=== PATIENT | female | born 1945 | race African-American/Black ===

== ENCOUNTER 2018-09-20 18:02 | Inpatient (IN) | payer OTHER ==
[~2018-09-20] VITALS: Ht 167.6 cm; Wt 96.6 kg
[2018-09-20 21:11] LABS: BASOPHILS % 0.8 % (0.0-2.0); EOSINOPHILS % 1.7 % (0.0-5.0); HEMATOCRIT. 39.9 % (36.0-48.0); HEMOGLOBIN. 13.1 g/dL (12.0-16.0); LYMPHOCYTES % 29.6 % (20.0-50.0); MEAN CORPUSCULAR HEMOGLOBIN 30.4 pg (28.0-32.0); MEAN CORPUSCULAR VOLUME 92.8 fL (81.0-99.0); MEAN PLATELET VOLUME 10.5 fl (7.4-10.4); MONOCYTES % 10.5 % (2.0-8.0); NEUTROPHILS % 57.4 % (40.0-76.0); PLATELET 171 x1000/uL (130-400); RED CELL DISTRIBUTION WIDTH 14.3 % (11.6-14.6)
[2018-09-20 21:14] LABS: CHLORIDE 103 mEq/L (98-107)
[2018-09-20] MEDS ORDERED: ASPIRIN 81MG TABLET PO ONE (22:15)
[2018-09-20] MEDS ORDERED: FUROSEMIDE 40MG/4ML VIAL IV ONE (22:15)
[2018-09-21 02:00] VITALS: BP_SYST 146; BP_SYST 151; BP_DIAS 101
[2018-09-21] MEDS ORDERED: CARV12.545 PO (03:18)
[2018-09-21] MEDS ORDERED: ASPI-986 PO (03:18)
[2018-09-21] MEDS ORDERED: ACETAMINOPHEN 325MG TABLET PO PRN (05:00)
[2018-09-21 08:00] VITALS: BP 148/95
[2018-09-21] MEDS: ENOXAPARIN 30MG/0.3ML SYR SUBCUT SCH ×2 (09:10→20:58)
[2018-09-21] MEDS: FUROSEMIDE 40MG/4ML VIAL IVP SCH (09:10)
[2018-09-21] MEDS: CARVEDILOL 12.5MG TABLET PO SCH ×2 (09:11→20:57)
[2018-09-21] MEDS: LOSARTAN POTASSIUM 50 MG TABLET PO SCH (09:11)
[2018-09-21] MEDS: POTASSIUM CHLORIDE 20MEQ TABLET SR PO SCH (09:11)
[2018-09-21 10:56] LABS: HEMATOCRIT 40.2 % (36.0-48.0); HEMOGLOBIN 13.1 g/dL (12.0-16.0); MEAN CORPUSCULAR HEMOGLOBIN 30.2 pg (28.0-32.0); MEAN CORPUSCULAR VOLUME 92.8 fL (81.0-99.0); PLATELET 158 x1000/uL (130-400); RED BLOOD CELL COUNT 4.33 mill/uL (4.2-5.4); RED CELL DISTRIBUTION WIDTH 13.8 % (11.6-14.6)
[2018-09-21 11:06] LABS: CLARITY URINE CLEAR (CLEAR); COLOR URINE YELLOW (YELLOW); KETONES URINE NEGATIVE (NEGATIVE); LEUKOCYTE ESTERASE URINE TRACE (NEGATIVE); NITRITE URINE NEGATIVE (NEGATIVE); OCCULT BLOOD URINE NEGATIVE (NEGATIVE); PH URINE 5.5 (4.5-8.0); PROTEIN URINE 3+ (NEGATIVE); SPECIFIC GRAVITY URINE 1.017 (1.005-1.030); UROBILINOGEN URINE 0.2 E.U./dL (0.2-1.0)
[2018-09-21 11:19] LABS: CHLORIDE 102 mEq/L (98-107)
[2018-09-21 11:32] LABS: CREATINE KINASE 110 IU/L (26-192)
[2018-09-21 11:34] LABS: CREATINE KINASE MB FRACTION 3.8 ng/mL (0.5-3.6)
[2018-09-21 11:51] VITALS: BP 131/76
[2018-09-21 12:20] LABS: *AMPHETAMINES SCREEN URINE NEGATIVE (NEGATIVE); *BARBITURATES SCREEN URINE NEGATIVE (NEGATIVE); *BENZODIAZEPINES SCREEN URINE PRESUMTIVE POSITIVE (NEGATIVE); *COCAINE SCREEN URINE NEGATIVE (NEGATIVE)
[2018-09-21 12:21] LABS: CANNABINOID URINE SCREEN NEGATIVE (NEGATIVE); METHADONE URINE SCREEN NEGATIVE (NEGATIVE); OPIATES URINE SCREEN NEGATIVE (NEGATIVE); PHENCYCLIDINE URINE SCREEN NEGATIVE (NEGATIVE)
[2018-09-21] MEDS ORDERED: DOCUSATE SODIUM 100MG CAPSULE PO PRN (15:30)
[2018-09-21] MEDS ORDERED: HYDRALAZINE 20MG/ML VIAL IV PRN (15:30)
[2018-09-21] MEDS ORDERED: LORAZEPAM 0.5MG TABLET PO PRN (15:30)
[2018-09-21] MEDS ORDERED: DIPHENHYDRAMINE 50MG/ML VIAL IV PRN (15:30)
[2018-09-21] MEDS ORDERED: HYDROCODONE/ACETAMINOPHEN 5/325MG TABLET PO PRN (15:30)
[2018-09-21 16:00] VITALS: BP 131/87
[2018-09-21] MEDS: PANTOPRAZOLE SODIUM 40 MG/VIAL IV SCH (16:06)
[2018-09-21] MEDS: ASPIRIN 81MG TABLET PO SCH (16:06)
[2018-09-21] MEDS ORDERED: CEFTRIAXONE 1 G PREMIX 50 ML IV SCH (17:00)
[2018-09-21 17:58] LABS: BG BASE EXCESS 6.8 mmol/L (-2.0-2.0); BG CARBOXYHEMOGLOBIN 0.9 % (0.5-1.5); BG DEOXYHEMOGLOBIN 9.4 % (0.0-5.0); BG FRACTION INSPIRED OXYGEN 21; BG METHEMOGLOBIN 0.1 % (0.0-1.5); BG OXYGEN SATURATION 90.5 % (92.0-98.5); BG OXYHEMOGLOBIN 89.6 % (94.0-97.0); BG PCO2 53.9 mmHg (35.0-45.0); BG PH 7.405 (7.350-7.450); BG PO2 60.3 mmHg (75.0-100.0); BG SAMPLE SITE RIGHT RADIAL; BG TOTAL HEMOGLOBIN 13.2 g/dL (12.0-18.0); BG VENT MODE ROOM AIR
[2018-09-21] MEDS: CEFTRIAXONE 1,000 MG in DEXTROSE 5% WATER 50 ML IV SCH (19:37)
[2018-09-21 20:00] VITALS: BP 125/87
[2018-09-21] MEDS: ATORVASTATIN CALCIUM 20MG TABLET PO SCH (20:57)
[2018-09-21 21:13] LABS: D-DIMER 0.97 mg/L FEU (<0.50); INR 1.2; PROTHROMBIN TIME 12.2 sec (9.1-11.1)
[2018-09-21 23:50] VITALS: BP 115/84
[2018-09-22 00:01] VITALS: BP 115/84
[2018-09-22 04:00] VITALS: BP 113/72
[2018-09-22 05:55] LABS: HEMATOCRIT 37.4 % (36.0-48.0); HEMOGLOBIN 12.3 g/dL (12.0-16.0); MEAN CORPUSCULAR HEMOGLOBIN 30.3 pg (28.0-32.0); MEAN CORPUSCULAR VOLUME 92.6 fL (81.0-99.0); PLATELET 149 x1000/uL (130-400); RED BLOOD CELL COUNT 4.04 mill/uL (4.2-5.4); RED CELL DISTRIBUTION WIDTH 13.7 % (11.6-14.6)
[2018-09-22 06:26] LABS: CHLORIDE 102 mEq/L (98-107)
[2018-09-22 06:42] LABS: LDL CHOLESTEROL 75 mg/dL (5-100)
[2018-09-22 06:44] LABS: CREATINE KINASE 76 IU/L (26-192); HDL CHOLESTEROL 56 mg/dL (40-59); T4 FREE 1.12 ng/dL (0.76-1.46)
[2018-09-22 07:20] LABS: CREATINE KINASE MB FRACTION 2.2 ng/mL (0.5-3.6)
[2018-09-22 08:00] VITALS: BP 130/82
[2018-09-22] MEDS: PANTOPRAZOLE SODIUM 40 MG/VIAL IV SCH (09:23)
[2018-09-22] MEDS: POTASSIUM CHLORIDE 20MEQ TABLET SR PO SCH (09:23)
[2018-09-22] MEDS: CARVEDILOL 12.5MG TABLET PO SCH ×2 (09:23→21:17)
[2018-09-22] MEDS: FUROSEMIDE 40MG/4ML VIAL IVP SCH (09:23)
[2018-09-22] MEDS: ENOXAPARIN 30MG/0.3ML SYR SUBCUT SCH ×2 (09:24→21:17)
[2018-09-22] MEDS: ASPIRIN 81MG TABLET PO SCH (09:24)
[2018-09-22] MEDS: LOSARTAN POTASSIUM 50 MG TABLET PO SCH (09:24)
[2018-09-22 12:00] VITALS: BP 98/56
[2018-09-22] MEDS ORDERED: LOSARTAN POTASSIUM 50 MG TABLET PO SCH (14:00)
[2018-09-22 16:00] VITALS: BP 120/66
[2018-09-22] MEDS ORDERED: FUROSEMIDE 40MG/4ML VIAL IVP SCH (16:00)
[2018-09-22] MEDS: CEFTRIAXONE 1,000 MG in DEXTROSE 5% WATER 50 ML IV SCH (18:39)
[2018-09-22] MEDS: LOSARTAN POTASSIUM 25 MG TABLET PO SCH (18:39)
[2018-09-22 20:02] VITALS: BP 117/75
[2018-09-22] MEDS: ATORVASTATIN CALCIUM 20MG TABLET PO SCH (21:17)
[2018-09-23 00:14] VITALS: BP 95/64
[2018-09-23 04:00] VITALS: BP 112/71
[2018-09-23 08:22] LABS: BASOPHILS % 0.8 % (0.0-2.0); EOSINOPHILS % 2.8 % (0.0-5.0); HEMATOCRIT. 37.6 % (36.0-48.0); LYMPHOCYTES % 23.9 % (20.0-50.0); MEAN CORPUSCULAR VOLUME 93.9 fL (81.0-99.0); MEAN PLATELET VOLUME 10.2 fl (7.4-10.4); MONOCYTES % 11.9 % (2.0-8.0); NEUTROPHILS % 60.6 % (40.0-76.0); PLATELET 144 x1000/uL (130-400); RED CELL DISTRIBUTION WIDTH 13.9 % (11.6-14.6)
[2018-09-23 08:30] VITALS: BP 132/73
[2018-09-23] MEDS: FUROSEMIDE 40MG/4ML VIAL IVP SCH (08:37)
[2018-09-23] MEDS: FAMOTIDINE 20MG TABLET PO SCH ×2 (08:37→20:29)
[2018-09-23] MEDS: ASPIRIN 81MG TABLET PO SCH (08:37)
[2018-09-23] MEDS: CARVEDILOL 12.5MG TABLET PO SCH ×2 (08:37→20:29)
[2018-09-23] MEDS: ENOXAPARIN 30MG/0.3ML SYR SUBCUT SCH ×2 (08:37→20:29)
[2018-09-23] MEDS: LOSARTAN POTASSIUM 25 MG TABLET PO SCH ×2 (08:37→16:11)
[2018-09-23] MEDS: POTASSIUM CHLORIDE 20MEQ TABLET SR PO SCH (08:37)
[2018-09-23 09:04] LABS: CHLORIDE 101 mEq/L (98-107)
[2018-09-23 09:26] LABS: LDL CHOLESTEROL 69 mg/dL (5-100)
[2018-09-23 09:28] LABS: HDL CHOLESTEROL 57 mg/dL (40-59)
[2018-09-23 11:47] VITALS: BP 109/67
[2018-09-23] MEDS ORDERED: FUROSEMIDE 40MG/4ML VIAL IVP SCH (13:30)
[2018-09-23 16:08] VITALS: BP 119/76
[2018-09-23] MEDS: CEFTRIAXONE 1,000 MG in DEXTROSE 5% WATER 50 ML IV SCH (18:44)
[2018-09-23 20:00] VITALS: BP 125/73
[2018-09-23] MEDS: ATORVASTATIN CALCIUM 20MG TABLET PO SCH (20:29)
[2018-09-24] VITALS: BP 128/80
[2018-09-24 04:04] VITALS: BP 141/83
[2018-09-24 08:00] VITALS: BP 142/77
[2018-09-24] MEDS: ENOXAPARIN 30MG/0.3ML SYR SUBCUT SCH (09:06)
[2018-09-24] MEDS: FAMOTIDINE 20MG TABLET PO SCH (09:06)
[2018-09-24] MEDS: LOSARTAN POTASSIUM 25 MG TABLET PO SCH (09:06)
[2018-09-24] MEDS: ASPIRIN 81MG TABLET PO SCH (09:06)
[2018-09-24] MEDS: POTASSIUM CHLORIDE 20MEQ TABLET SR PO SCH (09:06)
[2018-09-24] MEDS: CARVEDILOL 12.5MG TABLET PO SCH (09:06)
[2018-09-24] MEDS: FUROSEMIDE 40MG/4ML VIAL IVP SCH (09:07)
[2018-09-24 12:00] VITALS: BP 124/81
[2018-09-24 13:00] VITALS: BP 124/81
== END 2018-09-24 15:45 | disposition home or self-care (01) | DRG 291 ==
LOC: ER 18:02 → 8WST 22:18 → EDBEDREQ 22:30 → EDBEDREQTM 22:30 → ENRESERV 09-21 00:35
PROVIDERS: ADMIT Internal Medicine; ATTEND Internal Medicine
DX: I11.0 Hypertensive heart disease with heart failure (principal); J96.20 Acute and chronic respiratory failure, unspecified whether with hypoxia or hypercapnia; N39.0 Urinary tract infection, site not specified; D68.59 Other primary thrombophilia; I50.23 Acute on chronic systolic (congestive) heart failure; R80.9 Proteinuria, unspecified; F17.200 Nicotine dependence, unspecified, uncomplicated; K21.9 Gastro-esophageal reflux disease without esophagitis; I25.5 Ischemic cardiomyopathy; E66.9 Obesity, unspecified; E78.00 Pure hypercholesterolemia, unspecified; E78.5 Hyperlipidemia, unspecified; I25.10 Atherosclerotic heart disease of native coronary artery without angina pectoris; Z79.82 Long term (current) use of aspirin; Z68.34 Body mass index [BMI] 34.0-34.9, adult
CPT/HCPCS: 36415; 36600; 71045; 71250; 76705; 80048; 80061; 80305; 82375; 82550; 82553; 82805; 82962; 83036; 83880; 84439; 84443; 84484; 85027; 85379; 93005; 93306; 93970; 94618; 96374; 97116; 97162; 99285; C9113; J0696; J1650; J1940; J7040; J7060